=== PATIENT | male | born 1935 | race Caucasian/White ===

== ENCOUNTER → 2016-09-23 | Outpatient (CLI) | payer OTHER | LOC: RAD 09:37 | DX: J18.9 Pneumonia, unspecified organism (principal); R91.8 Other nonspecific abnormal finding of lung field ==

== ENCOUNTER 2016-10-01 12:19 | Inpatient (IN) | payer OTHER ==
[~2016-10-01] VITALS: Ht 190.5 cm; Wt 101.4 kg
--- NOTE | ~2016-10-01 | EKG ---
[address] [address] ELECTROCARDIOGRAM REPORT Name: LAYA EGAN Room #: 306-P ADM IN M.R.#: [id number] Admission: 10/01/16 Attend Phys: Dusty Ball MD Discharge: Date of : 31 Report #: [id number] THIS REPORT FOR: //name// [facility] Test Date: 2016-10-01 Test Time: 14:53:08 Pat Name: LAYA EGAN Department: Room: 306 P Gender: M Skin Lap Bonder: Sunday MAYEN : 1935 Requested By: Yamila Escalante Order Number: [id number] MD: Kyle Salcido Measurements Intervals [place] Rate: 71 P: AR: QRS: 59 QRSD: 109 T: 25 QT: 405 QTc: 441 Interpretive Statements Atrial fibrillation Low voltage, extremity leads No previous ECG available for comparison Electronically Signed On 10-04-2016 13:00:42 CDT by Kyle Salcido [email or web address] <ELECTRONICALLY SIGNED> By: Kyle Salcido MD 10/04/16 1300 1453 1453 Kyle Salcido MD /MARBIN
--- NOTE | ~2016-10-01 | HC ---
[place] [address] CONSULTATION Name: LAYA EGAN Room #: 306-P [facility] IN ..#: [id number] Admission: 10/01/16 Attend Phys: Dusty Ball MD Discharge: 10/07/16 Date of : 31 Report #: [id number] THIS REPORT FOR: //name// CC: Hesham Norton REQUESTING PHYSICIAN: Dr. Radford. CHIEF COMPLAINT: Atrial fibrillation. HISTORY OF PRESENT ILLNESS: The patient is an 80-year-old man who I follow for persistent atrial fibrillation who was admitted with a debilitation and pneumonia. He had been short of breath with activity. I am asked to see him because of bradycardic episodes in the low 50 and overall general complaints of fatigue and weakness as an outpatient. He denies syncope or presyncope. He is anticoagulated for his atrial fibrillation, which is for the most part, rate control without AV catie acting agents. He denies any neuro symptoms of slurred speech, extremity numbness, weakness or visual changes. He denies any GI or bleeding. He admits over the last several weeks he has been weak and tired and mostly sitting in a chair and taking long naps. PAST MEDICAL HISTORY: Significant for hypertension, atrial fibrillation, persistent acid peptic ulcer disease, possible rheumatoid arthritis, debilitation and interstitial lung disease is likely pulmonary diagnosis. CURRENT MEDICATIONS: Include levofloxacin, , fluoxetine, fluticasone, Protonix, , atorvastatin 40 mg daily, Xarelto 20 mg daily, albuterol p.r.n. SOCIAL HISTORY: Nonsmoker. REVIEW OF SYSTEMS: GASTROINTESTINAL: No abdominal pain, nausea, vomiting. CARDIOVASCULAR: No chest pain or pressure, no palpitations symptoms. NEUROLOGIC: No seizures, weakness. SKIN: No rashes. GASTROINTESTINAL: No hematemesis or melena. GENITOURINARY: No dysuria or hematuria. SKIN: No rashes. GENERAL: No fevers or chills. OBJECTIVE: VITAL SIGNS: ECG demonstrates atrial fibrillation on the 10/01/2016, which [address] [place] [address] CONSULTATION Name: LAYA EGAN Room #: 306-P [facility] IN .R.#: [id number] Admission: 10/01/16 Attend Phys: Dusty Ball MD Discharge: 10/07/16 Date of : 33 Report #: [id number] demonstrated a heart rate of 71. LABORATORY DATA: Hemoglobin is 9.7, white blood count 8, platelet count is 170,000. Chest x-ray, slight improvement in the right upper lobe infiltrate. IMPRESSION AND PLAN: 1. Atrial fibrillation, persistent. He has been followed as an outpatient for his atrial fibrillation, which had been previously rate controlled. We have had some discussions as he had some evidence on ECG only of sick sinus syndrome, but his symptoms of fatigue, the weakness, generalized may be related to bradycardia and we will have discussions as an outpatient for possible permanent pacemaker. 2. Pneumonia/pneumonitis. He is being treated aggressively for this and his symptoms could be related to this also. I would like to see how he resolves from this before making any decisions on whether or not he needs a pacemaker. 3. Anticoagulation. Presently, I would continue with Xarelto for stroke prevention. 4. Hyperlipidemia. I will continue with present medical therapy with a statin. <ELECTRONICALLY SIGNED> By: Dewayne Norton MD, FACC 10/09/16 1336 0934 1111 Dewayne Norton MD, FACC /nt
[2016-10-01 12:40] VITALS: BP 85/49
[2016-10-01] MEDS ORDERED: OMEPRAZOLE 20 M20 M1 PO (13:16)
[2016-10-01] MEDS ORDERED: XARELTO20 MG PO (13:16)
[2016-10-01] MEDS ORDERED: VYTORIN 10-401 EACH PO (13:17)
[2016-10-01] MEDS ORDERED: ZOLOFT50 MG PO (13:19)
[2016-10-01] MEDS ORDERED: PROZAC10 MG PO ×2 (13:23→13:24)
[2016-10-01 14:58] LABS: ABSOLUTE NEUTROPHILS 4.6 thou/uL (1.4-8.2); BASOPHILS 0.3 % (0.0-2.0); EOSINOPHILS 5.3 % (0.0-3.0); HEMATOCRIT 34.6 % (42.0-52.0); HEMOGLOBIN 11.7 gm/dL (14.0-18.0); LYMPHOCYTES 10.4 % (24.0-44.0); MCH 32.4 pg (26.0-34.0); MCHC 33.8 g/dL (28.0-37.0); MCV 95.8 fL (80.0-100.0); MONOCYTES 11.6 % (1.0-8.0); PLATELET COUNT 156 thou/uL (150-400); POLYS 72.4 % (36.0-66.0); RBC 3.61 mil/uL (4.50-6.00); RDW 14.3 % (10.5-14.5); WBC 6.3 thou/uL (4.0-11.0)
[2016-10-01 14:59] LABS: MANUAL DIFF NO
[2016-10-01 15:27] LABS: ALBUMIN 2.7 g/dL (3.4-5.0); ALKALINE PHOSPHATASE 68 U/L (46-116); ANION GAP 10 mmol/L (7-16); BUN 14 mg/dL (7-18); CALCIUM 8.9 mg/dL (8.5-10.1); CHLORIDE 102 mmol/L (98-107); CO2 26 mmol/L (21-32); CREATININE 1.3 mg/dL (0.6-1.3); GLUCOSE 84 mg/dL (70-99); NT-PRO BRAIN NAT PEPTIDE 2641 pg/mL (<300); POTASSIUM 4.1 mmol/L (3.5-5.1); SGOT 16 U/L (15-37); SGPT 14 U/L (30-65); SODIUM 138 mmol/L (136-145); TOTAL BILIRUBIN 0.7 mg/dL (<0.1-1.0); TROPONIN-I < 0.04 ng/mL (<0.04-0.07)
[2016-10-01 15:33] LABS: TSH 1.313 uIU/mL (0.358-3.740)
[2016-10-01 16:00] VITALS: BP 93/33
[2016-10-01] MEDS ORDERED: REQUIP 1 MG TABL1 M1 PO (16:44)
[2016-10-01 17:16] LABS: ABG SAMPLE TYPE ARTERIAL; BE(vivo) 1.2 mmol/L (-2 to +3); HCO3 24.1 mmol/L (22.0-26.0); LACTATE 1.08 mmol/L (0.5-2.0); O2(CT) 15.5 mL/dL (15.0-23.0); O2Hb 90.9 % (92.0-98.0); PCO2 32.7 mmHg (35.0-45.0); STICK SITE L.BRACHIAL; pH 7.486 (7.360-7.450); sO2 93.3 % (92.0-98.0); tCO2 25.1 mmol/L (24.0-30.0)
[2016-10-01 17:34] LABS: URINE BILIRUBIN NEGATIVE (Negative); URINE BLOOD NEGATIVE (Negative); URINE COLOR YELLOW; URINE GLUCOSE-RANDOM* NEGATIVE (Negative); URINE KETONES NEGATIVE (Negative); URINE LEUKOCYTES-REFLEX NEGATIVE (Negative); URINE PROTEIN (DIPSTICK) NEGATIVE (Negative); URINE SPECIFIC GRAVITY <= 1.005 (1.003-1.035); URINE UROBILINOGEN 0.2 E.U./dl (0.2-1.0)
[2016-10-01 19:37] VITALS: BP 95/47
[2016-10-02 00:16] VITALS: BP 105/48
[2016-10-02 05:57] LABS: HEMATOCRIT 33.1 % (42.0-52.0); MCH 31.8 pg (26.0-34.0); MCHC 33.2 g/dL (28.0-37.0); MCV 95.7 fL (80.0-100.0); RBC 3.46 mil/uL (4.50-6.00); RDW 13.8 % (10.5-14.5); WBC 4.2 thou/uL (4.0-11.0)
[2016-10-02 06:18] LABS: CALCIUM 8.6 mg/dL (8.5-10.1); POTASSIUM 4.3 mmol/L (3.5-5.1)
[2016-10-02] MEDS ORDERED: PROZAC20 MG PO (08:19)
[2016-10-02 08:36] VITALS: BP 121/62
[2016-10-02 12:40] VITALS: BP 94/41
[2016-10-02 13:12] LABS: IgA 201 mg/dL (61-437); IgG 1098 mg/dL (700-1600); IgM 235 mg/dL (15-143)
[2016-10-02 16:45] VITALS: BP 98/42
[2016-10-02 19:55] VITALS: BP 94/54
[2016-10-03 03:40] VITALS: BP 116/65
[2016-10-03 05:35] LABS: HEMATOCRIT 28.7 % (42.0-52.0); HEMOGLOBIN 9.7 gm/dL (14.0-18.0); MCH 32.1 pg (26.0-34.0); MCHC 33.8 g/dL (28.0-37.0); PLATELET COUNT 153 thou/uL (150-400); RBC 3.03 mil/uL (4.50-6.00); RDW 13.9 % (10.5-14.5); WBC 8.6 thou/uL (4.0-11.0)
[2016-10-03 05:41] LABS: MANUAL DIFF YES
[2016-10-03 05:56] LABS: CALCIUM 8.6 mg/dL (8.5-10.1); CREATININE 1.1 mg/dL (0.6-1.3); POTASSIUM 4.3 mmol/L (3.5-5.1)
[2016-10-03 08:03] VITALS: BP 116/87
[2016-10-03 08:06] LABS: ABSOLUTE NEUTROPHILS 7.6 thou/uL (1.4-8.2); TOTAL CELL COUNT 100
[2016-10-03 08:07] LABS: OVALOCYTES FEW; PLATELET ESTIMATE NORMAL; POLYCHROMASIA 1+
[2016-10-03 08:08] LABS: BURR CELLS OCCASIONAL; LARGE PLATELETS FEW
[2016-10-03 13:12] LABS: ANTI-DNA SCREEN <1 IU/mL (0-9); ANTI-RNP 0.2 AI (0.0-0.9)
[2016-10-03 14:08] LABS: FREE TESTOSTERONE 1.8 pg/mL (6.6-18.1)
[2016-10-03 19:43] VITALS: BP 101/49
[2016-10-04 03:43] VITALS: BP 123/64
[2016-10-04 04:17] LABS: CALCIUM 8.6 mg/dL (8.5-10.1); CREATININE 1.1 mg/dL (0.6-1.3); POTASSIUM 4.5 mmol/L (3.5-5.1)
[2016-10-04 04:33] LABS: HEMATOCRIT 28.1 % (42.0-52.0); HEMOGLOBIN 9.7 gm/dL (14.0-18.0); MCH 32.9 pg (26.0-34.0); MCHC 34.4 g/dL (28.0-37.0); MCV 95.7 fL (80.0-100.0); RBC 2.94 mil/uL (4.50-6.00); RDW 14.4 % (10.5-14.5)
[2016-10-04 08:35] VITALS: BP 108/59
[2016-10-04 10:08] LABS: GLOMERULR BASEM MEMBRN AB 3 units (0-20)
[2016-10-04 11:10] LABS: ANGIOTENSIN CONVERTNG ENZ 16 U/L (14-82)
[2016-10-04 13:09] LABS: MYELOPEROXIDASE ANTIBODY < 9.0 U/mL (0.0-9.0); PROTEASE 3 ANTIBODY < 3.5 U/mL (0.0-3.5)
[2016-10-04 18:15] VITALS: BP 117/74
[2016-10-04 19:52] VITALS: BP 124/56
[2016-10-05 03:50] VITALS: BP 119/66
[2016-10-05 07:25] VITALS: BP 124/68
[2016-10-05 17:15] VITALS: BP 112/56
[2016-10-05 19:50] VITALS: BP 128/73
[2016-10-06 04:10] VITALS: BP 121/69
[2016-10-06 09:37] VITALS: BP 100/63
[2016-10-06 12:22] VITALS: BP 135/57
[2016-10-06 16:43] VITALS: BP 134/59
[2016-10-06 19:40] VITALS: BP 126/65
[2016-10-07 04:27] VITALS: BP 130/73
[2016-10-07 08:35] VITALS: BP 107/52
[2016-10-07] MEDS ORDERED: COLACE 100 MG100 MG PO (08:40)
[2016-10-07] MEDS ORDERED: PREDNISONE 20 M20 M1 PO ×2 (08:40→08:46)
[2016-10-07] MEDS ORDERED: ATORVASTATIN CA80 MG PO (08:40)
[2016-10-07] MEDS ORDERED: LEVAQUIN 500 M500 M1 PO (08:46)
[2016-10-07 09:06] LABS: ASPERGILLUS FLAVUS Negative (Negative); ASPERGILLUS FUMIGATIS #1 Negative (Negative); ASPERGILLUS FUMIGATIS #2 Negative (NEGATIVE); ASPERGILLUS FUMIGATIS #3 Negative (NEGATIVE); ASPERGILLUS FUMIGATIS #6 Negative (NEGATIVE); AUREO PULLULANS Negative (Negative); MICROPOLYSPOR FAENI Negative (Negative); PIGEON SERUM Negative (Negative); SACCHAR. VIRIDIS Negative (Negative); THERM.CANDIDUS Negative (Negative); THERM.SACCHARI Negative (Negative); THERMOACTINOMYCE VULGARIS Negative (Negative)
[2016-10-07] MEDS ORDERED: MUCINEX TA600 MG/TA2 PO (09:41)
[2016-10-07] MEDS ORDERED: CLARITIN10 MG PO (09:42)
[2016-10-07] MEDS ORDERED: FLONASE 0.05%50 MCG NASAL (09:42)
[2016-10-07] MEDS ORDERED: NEBULIZER (09:46)
[2016-10-07] MEDS ORDERED: DUONEB 2.5-0.5 M3 ML INH (09:46)
[2016-10-07 10:24] LABS: HEMATOCRIT 34.7 % (42.0-52.0); HEMOGLOBIN 11.5 gm/dL (14.0-18.0); MCH 32.1 pg (26.0-34.0); MCHC 33.1 g/dL (28.0-37.0); MCV 96.8 fL (80.0-100.0); RBC 3.59 mil/uL (4.50-6.00); RDW 14.9 % (10.5-14.5); WBC 12.1 thou/uL (4.0-11.0)
[2016-10-07 10:39] LABS: ALBUMIN 2.7 g/dL (3.4-5.0); CALCIUM 8.6 mg/dL (8.5-10.1); CREATININE 1.1 mg/dL (0.7-1.3); POTASSIUM 3.7 mmol/L (3.5-5.1); TOTAL BILIRUBIN 0.7 mg/dL (<0.1-1.0); TOTAL PROTEIN 6.4 g/dL (6.4-8.2)
[2016-10-07 12:52] VITALS: BP 116/60
[2016-10-07 13:19] VITALS: BP 116/60
[2016-10-07 15:03] VITALS: BP 116/60
[2016-10-07 17:10] LABS: c-ANCA <1:20 titer (Neg:<1:20); p-ANCA <1:20 titer (Neg:<1:20)
== END 2016-10-07 15:49 | disposition home health service (06) | DRG 193 ==
LOC: 3N 12:19
PROVIDERS: Family Medicine; Internal Medicine Pulmonary Disease; Nurse Practitioner
PROC: 5A09557 Assistance with Respiratory Ventilation, Greater than 96 Consecutive Hours, Continuous Positive Airway Pressure (ICD-10-PCS; principal; 2016-10-02)
DX: J18.9 Pneumonia, unspecified organism (principal); E43 Unspecified severe protein-calorie malnutrition; J96.01 Acute respiratory failure with hypoxia; N17.9 Acute kidney failure, unspecified; I48.91 Unspecified atrial fibrillation; I10 Essential (primary) hypertension; E78.5 Hyperlipidemia, unspecified; F32.9 Major depressive disorder, single episode, unspecified; G47.30 Sleep apnea, unspecified; R26.81 Unsteadiness on feet; I95.9 Hypotension, unspecified; I49.5 Sick sinus syndrome; R53.81 Other malaise; Z68.27 Body mass index [BMI] 27.0-27.9, adult; Z85.46 Personal history of malignant neoplasm of prostate; Z87.11 Personal history of peptic ulcer disease; Z79.01 Long term (current) use of anticoagulants; Z87.891 Personal history of nicotine dependence
CPT/HCPCS: 10094; 10096

== ENCOUNTER → 2016-10-11 | Outpatient (CLI) | payer OTHER ==
[~2016-10-11] MED LIST: ATORVASTATIN CA80 MG PO; CLARITIN10 MG PO; COLACE 100 MG100 MG PO; DUONEB 2.5-0.5 M3 ML INH; FLONASE 0.05%50 MCG NASAL; LEVAQUIN 500 M500 M1 PO; MUCINEX TA600 MG/TA2 PO; NEBULIZER; OMEPRAZOLE 20 M20 M1 PO; PREDNISONE 20 M20 M1 PO; PROZAC10 MG PO; PROZAC20 MG PO; REQUIP 1 MG TABL1 M1 PO; VYTORIN 10-401 EACH PO; XARELTO20 MG PO; ZOLOFT50 MG PO
== END ==
LOC: CV 07:11
DX: I49.5 Sick sinus syndrome (principal); R42 Dizziness and giddiness

== ENCOUNTER → 2016-10-17 | Outpatient (CLI) | payer OTHER ==
[2016-10-17 11:43] LABS: HEMATOCRIT 38.9 % (42.0-52.0); HEMOGLOBIN 12.8 gm/dL (14.0-18.0); MCH 32.2 pg (26.0-34.0); MCHC 32.8 g/dL (28.0-37.0); MCV 98.1 fL (80.0-100.0); RBC 3.97 mil/uL (4.50-6.00); RDW 16.5 % (10.5-14.5); WBC 16.3 thou/uL (4.0-11.0)
== END ==
LOC: LAB 11:03
PROVIDERS: Internal Medicine Pulmonary Disease
DX: J44.9 Chronic obstructive pulmonary disease, unspecified (principal); R91.8 Other nonspecific abnormal finding of lung field; J90 Pleural effusion, not elsewhere classified

== ENCOUNTER → 2016-11-07 | Outpatient (CLI) | payer OTHER | LOC: RAD 10:35 | DX: J47.9 Bronchiectasis, uncomplicated (principal) ==

== ENCOUNTER → 2016-11-28 | Outpatient (CLI) | payer OTHER | LOC: SPEECH 10:50 → RAD 10:50 | DX: R13.12 Dysphagia, oropharyngeal phase (principal) ==

== ENCOUNTER 2016-12-03 08:00 | Inpatient (IN) | payer OTHER ==
[~2016-12-03] VITALS: Ht 190.5 cm; Wt 101.6 kg
--- NOTE | ~2016-12-03 | HC ---
[facility] [place] [address] CONSULTATION Name: LAYA EGAN Room #: 540-P ADM IN M.R.#: [id number] Admission: 12/03/16 Attend Phys: Franklin Tapia MD Discharge: Date of : 33 Report #: [id number] THIS REPORT FOR: //name// CC: Hesham Tapia REASON FOR CONSULTATION: I was asked to evaluate concerning exacerbation of COPD and chronic bronchitis. HISTORY OF PRESENT ILLNESS: The patient is an 81-year-old with long history of COPD and chronic bronchitis. In September, he was hospitalized with pneumonia. One of his sputum cultures revealed normal karthikeyan. The other one revealed mycobacterium avium complex. He was treated with corticosteroids and antibiotics and showed improvement. CT scan of the sinus noticed there is mild left maxillary disease and CT of the chest revealed multifocal subpleural prominent consolidation with ground glass opacities and septal thickening consistent with interstitial lung disease. There was also concern whether he had mycobacterial infection. He has a history of chronic bronchitis. He is HIV negative. Has a history of prostate and colon cancer without evidence of relapse. He has a [employer] reactor after being stationed in [place]. This is in 1961. He was evaluated by me as an outpatient on 11/05/2016. AFB cultures were done x 3, one of which is growing a mycobacterium. Also had sputum culture for bacteria, which revealed acinetobacter. Last week, he was placed on Bactrim. The acinetobacter was fully susceptible. It is noted that the sputum culture from my office was AFB positive, but probe negative for tuberculosis or mycobacterium avium complex. I am awaiting further identification. Forty eight hours ago developed increased cough, sputum production, shortness of breath, hypoxia and presented to the emergency room this morning. He has had yellowish sputum production. One episode of hemoptysis. He had a dental extraction about a week ago. He is taking anticoagulants. He has had no documented fever. Hemodynamically, he has been stable. He was able to walk in through the emergency room and is now on 2 liters of oxygen per nasal cannula. After some fluids, steroids, he has felt better in the last several hours. He has had difficulty expectorating any sputum today. PAST MEDICAL HISTORY: Legionella 1994, prostate cancer, nephritis, glaucoma, colon cancer, atrial fibrillation, obstructive sleep apnea, depression, colon resection. FAMILY HISTORY: Noncontributory. 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 Past alcohol use. [address] [address] CONSULTATION Name: LAYA EGAN Room #: 540-P [facility] IN M.R.#: [id number] Admission: 12/03/16 Attend Phys: Franklin Tapia MD Discharge: Date of : 33 Report #: [id number] ALLERGIES: None. MEDICATIONS: As noted on his MAR, Bactrim, presenting today, now on corticosteroids. REVIEW OF SYSTEMS: No nausea, vomiting, diarrhea, dysuria or frequency. No rash or arthritis symptoms. PHYSICAL EXAMINATION: VITAL SIGNS: He is afebrile, hemodynamically stable. GENERAL: He is alert and cooperative, sitting up in a chair. He was conversant. He is on 2 liters of oxygen per nasal cannula. SKIN: Unremarkable. LYMPH: Unremarkable. HEENT: Unremarkable except for an extracted posterior upper molar on the right. NECK: Supple. LUNGS: Decreased breath sounds bilaterally with no consolidation. HEART: Regular, without murmur. ABDOMEN: Soft, nontender, no hepatosplenomegaly or mass. EXTREMITIES: No peripheral edema. NEUROLOGIC: Nonfocal. LABORATORY STUDIES: Hemoglobin 12.5, white count 7.4, platelet count 173,000. Sedimentation rate 39, creatinine 1.3. ABG on 2 liters showed a pO2 of 102, pCO2 34, pH 7.45. Chest x-ray shows improved right upper lobe infiltrate from his last hospitalization with chronic changes in the bases. This past week, he had a video swallow, which was normal. IMPRESSION: An 81-year-old with underlying chronic obstructive pulmonary disease exacerbation of such with worsening chronic bronchitis. Has history of acinetobacter and mycobacterium avium complex. I am still awaiting on repeat studies to confirm whether this is colonization of his airways or true pathogen. Would recommend continuing broad antibiotic coverage, pending repeat sputum culture. We will continue pulmonary hygiene and corticosteroids. <ELECTRONICALLY SIGNED> By: Vel Zavala MD 12/04/16 1845 1829 0051 Vel Zavala MD /nt
--- NOTE | ~2016-12-03 | CNG ---
[facility] [place] [address] CYTO-NONGYN REPORT PROCEDURE Name: LAYA EGAN Room #: 540-P ADM IN M.R.#: [id number] Admission: 12/03/16 Date of : 33 Discharge: Report #: [id number] Path Case #: [id number] CYTOPATHOLOGY REPORT COLLECTION DATE: 12/04/2016 RECEIVED DATE: 12/04/2016 SUBMITTING PHYS: Dr. Hesham Pulido OTHER PHYS: Dr. Leo Tapia CLINICAL HISTORY: COPD Exacerbation SPECIMEN(S) RECEIVED: A.Sputum * * * * * * * * * * * * FINAL DIAGNOSIS: A. Sputum: - No evidence of malignancy - Few bronchial epithelial cells, alveolar macrophages, and squamous cells present. PATHOLOGIST: Candy Oshea M.D. REPORT ELECTRONICALLY SIGNED BY: Candy Oshea M.D. DATE/TIME: 12/05/2016 14:02 * * * * * * * * * * * * GROSS PATHOLOGY: A. Sputum: The specimen is submitted unfixed, labeled "Laya Egan". Received by the Cytology Department is five mL of cloudy white fluid. One ThinPrep slide was prepared. (mm 12.04.2016) DIE REPAIR(S): SHABBIR Bender(ASCP)IAC INITIAL CPT CODE(S): A; 78483 Professional services performed by [facility] at [facility] [address], [place] [address] Technical services performed by [facility] at [address] [place] [address]., [address], [place], [place] [address]. [facility] [address] [place] [address], [address] [facility] [address] [place] [address] CYTO-NONGYN REPORT PROCEDURE Name: LAYA EGAN Room #: 540-P ADM IN M.R.#: [id number] Admission: 12/03/16 Date of : 33 Discharge: Report #: [id number] Path Case #: [id number] [place] [id number] PHONE: [phone] DIRECTOR: Jordan Ambriz M.D. * * * END OF REPORT * * *
--- NOTE | ~2016-12-03 | EKG ---
[address] [address] ELECTROCARDIOGRAM REPORT Name: LAYA EGAN Room #: PRE M.R.#: [id number] Admission: Attend Phys: Discharge: Date of : 33 Report #: [id number] THIS REPORT FOR: //name// [facility] ED Test Date: 2016-12-03 Test Time: 08:32:14 Pat Name: LAYA EGAN Department: Room: Gender: M [employer]: [id number] : 1935 Requested By: Jayesh Patel Order Number: [id number] MD: Kaden Barajas Measurements Intervals [place] Rate: 94 P: MD: QRS: 54 QRSD: 100 T: 2 QT: 391 QTc: 490 Interpretive Statements Atrial fibrillation Borderline prolonged QT interval Compared to ECG 10/01/2016 14:53:08 No significant change was found Electronically Signed On 12-03-2016 9:03:34 CDT by Kaden Barajas [email or web address] <ELECTRONICALLY SIGNED> By: Kaden Barajas MD, [facility] 12/03/16 0903 0832 0832 Kaden Barajas MD, [facility] /EPI
--- NOTE | ~2016-12-03 | HC ---
[facility] [place] [address] CONSULTATION Name: ALYA EGAN Room #: 540-P ADM IN M.R.#: [id number] Admission: 12/03/16 Attend Phys: Franklin Tapia MD Discharge: Date of : 33 Report #: [id number] THIS REPORT FOR: //name// CC: Hesham Tapia DATE OF SERVICE: 12/03/2016 DATE OF SERVICE: 12/03/2016. REASON FOR CONSULTATION: Exacerbation of chronic obstructive pulmonary disease. IMPRESSION: 1. Pulmonary infiltrate. 2. 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 3. Debilitation. 4. Paroxysmal atrial fibrillation. PLAN: Agree with corticosteroids, antibiotics per ID. Continue BiPAP at night. Continue her home meds as able. HISTORY OF PRESENT ILLNESS: A very pleasant 81-year-old male relates that he was doing well until and then started to have shortness breath, cough, wheeze, and discolored sputum. He had been off his steroids for about 2 weeks when this occurred. He has been seeing Dr. Shola Zavala for MAC evaluation. He denies fever, chills or night sweats. He denies nausea or vomiting. Chest x-ray actually improving. Discussed with an ER physician and felt his exacerbation did not break in the ER and was thus admitted. HOME MEDICATIONS: Included albuterol, Astelin, calcium, Vytorin, , Flonase, DuoNeb, Prilosec, Xarelto, Requip, Zoloft and Spiriva. PAST MEDICAL HISTORY: History of colon CA with resection. FAMILY HISTORY: Positive for VT, COPD. SOCIAL HISTORY: Quit smoking in 1986. Negative significant ETOH. ALLERGIES: No known. REVIEW OF SYSTEMS: Cough, shortness of breath, atrial fibrillation, depression. PHYSICAL EXAMINATION: VITAL SIGNS: Temperature 97.9, pulse 96, respiratory rate 16, and BP 107/53. [facility] [address] [place] [address] CONSULTATION Name: LAYA EGAN Room #: 540-P [facility] IN M.R.#: [id number] Admission: 12/03/16 Attend Phys: Franklin Tapia MD Discharge: Date of : 33 Report #: [id number] EYES: Negative icterus. NECK: Trachea midline. LUNGS: Coarse wheeze bilateral. HEART: Irregular. ABDOMEN: Bowel sounds present. EXTREMITIES: No calf tenderness. Moves all extremities. LABORATORY AND DIAGNOSTIC DATA: White count 7.4, hemoglobin 12.5, platelets 173. BUN 13, creatinine 1.3. Troponin less than 0.04. Chest x-ray was similar to prior. ABG shows lactate 1.1, pH 7.455, pCO2 of 34, pO2 of 102 on 2 liters. We will follow closely with you. By: 1451 0118 Hesham Pulido MD /nt
[2016-12-03 08:03] VITALS: BP 121/68
[2016-12-03 08:30] LABS: HEMATOCRIT 38.3 % (42.0-52.0); HEMOGLOBIN 12.5 gm/dL (14.0-18.0); MCH 32.8 pg (26.0-34.0); MCHC 32.8 g/dL (28.0-37.0); RBC 3.82 mil/uL (4.50-6.00); RDW 17.5 % (10.5-14.5); WBC 7.4 thou/uL (4.0-11.0)
[2016-12-03 08:33] LABS: ANION GAP 9 mmol/L (7-16); BUN 13 mg/dL (7-18); CALCIUM 8.8 mg/dL (8.5-10.1); CHLORIDE 106 mmol/L (98-107); CO2 26 mmol/L (21-32); CREATININE 1.3 mg/dL (0.7-1.3); GLUCOSE 133 mg/dL (74-106); POTASSIUM 4.2 mmol/L (3.5-5.1); SODIUM 141 mmol/L (136-145)
[2016-12-03 08:41] LABS: TROPONIN-I < 0.04 ng/mL (<0.04-0.07)
[2016-12-03] MEDS ORDERED: ZOLOFT50 MG PO (09:30)
[2016-12-03] MEDS ORDERED: BACTRIM DS TAB1 EACH PO (09:41)
[2016-12-03] MEDS ORDERED: PROAIR HFA8.5 GM PO (09:42)
[2016-12-03 11:04] LABS: ABG SAMPLE TYPE ARTERIAL; BE(vivo) 0.2 mmol/L (-2 to +3); HCO3 23.6 mmol/L (22.0-26.0); O2(CT) 17.3 mL/dL (15.0-23.0); O2Hb 96.8 % (92.0-98.0); PCO2 34.4 mmHg (35.0-45.0); PO2 102.5 mmHg (80.0-100.0); STICK SITE R.RADIAL; pH 7.455 (7.360-7.450); tCO2 24.7 mmol/L (24.0-30.0)
[2016-12-03 11:55] VITALS: BP 128/56
[2016-12-03 12:35] VITALS: BP 107/53
[2016-12-03 15:45] VITALS: BP 105/62
[2016-12-03 20:15] VITALS: BP 99/50
[2016-12-03 23:20] VITALS: BP 101/60
[2016-12-04 04:00] VITALS: BP 106/60
[2016-12-04 05:01] LABS: HEMOGLOBIN 11.6 gm/dL (14.0-18.0); WBC 5.1 thou/uL (4.0-11.0)
[2016-12-04 05:03] LABS: HEMATOCRIT 34.5 % (42.0-52.0); MCH 33.2 pg (26.0-34.0); MCHC 33.7 g/dL (28.0-37.0); MCV 98.5 fL (80.0-100.0); PLATELET COUNT 154 thou/uL (150-400); RDW 17.3 % (10.5-14.5)
[2016-12-04 05:16] LABS: MANUAL DIFF YES
[2016-12-04 05:18] LABS: CALCIUM 8.8 mg/dL (8.5-10.1); CREATININE 1.2 mg/dL (0.7-1.3); POTASSIUM 4.6 mmol/L (3.5-5.1)
[2016-12-04 05:23] LABS: ALBUMIN 3.1 g/dL (3.4-5.0); MAGNESIUM 2.2 mg/dL (1.8-2.4); TOTAL BILIRUBIN 0.5 mg/dL (<0.1-1.0); TOTAL PROTEIN 6.5 g/dL (6.4-8.2)
[2016-12-04 05:53] LABS: ABSOLUTE NEUTROPHILS 4.5 thou/uL (1.4-8.2); TOTAL CELL COUNT 100
[2016-12-04 05:54] LABS: ANISOCYTOSIS 2+; MACROCYTES SLIGHT; POLYCHROMASIA OCCASIONAL
[2016-12-04 08:00] VITALS: BP 100/46
[2016-12-04 16:00] VITALS: BP 109/50; BP 149/95
[2016-12-04 20:39] VITALS: BP 103/46
[2016-12-05 05:34] VITALS: BP 115/53
[2016-12-05 08:29] VITALS: BP 108/68
[2016-12-05 15:59] VITALS: BP 109/61
[2016-12-05 19:21] VITALS: BP 103/58
[2016-12-06 03:28] VITALS: BP 117/65
[2016-12-06 07:54] VITALS: BP 128/69
[2016-12-06] MEDS ORDERED: PREDNISONE 10 M10 MG PO (12:14)
[2016-12-06 12:29] VITALS: BP 128/69
== END 2016-12-06 13:45 | disposition home or self-care (01) | DRG 191 ==
LOC: ER 08:00 → EROBS 11:30 → 5S 11:30
PROVIDERS: Emergency Medicine; Nurse Practitioner
DX: J44.0 Chronic obstructive pulmonary disease with (acute) lower respiratory infection (principal); A31.0 Pulmonary mycobacterial infection; R65.10 Systemic inflammatory response syndrome (SIRS) of non-infectious origin without acute organ dysfunction; J44.1 Chronic obstructive pulmonary disease with (acute) exacerbation; F32.9 Major depressive disorder, single episode, unspecified; J20.9 Acute bronchitis, unspecified; H40.9 Unspecified glaucoma; G47.33 Obstructive sleep apnea (adult) (pediatric); R26.81 Unsteadiness on feet; I48.0 Paroxysmal atrial fibrillation; Z82.49 Family history of ischemic heart disease and other diseases of the circulatory system; Z85.46 Personal history of malignant neoplasm of prostate; Z87.01 Personal history of pneumonia (recurrent); Z85.038 Personal history of other malignant neoplasm of large intestine; Z79.899 Other long term (current) drug therapy; Z87.891 Personal history of nicotine dependence; Z82.5 Family history of asthma and other chronic lower respiratory diseases
CPT/HCPCS: 10086

== ENCOUNTER → 2016-12-20 | Outpatient (CLI) | payer OTHER ==
[~2016-12-20] MED LIST changes: +BACTRIM DS TAB1 EACH PO; +PREDNISONE 10 M10 MG PO; +PROAIR HFA8.5 GM PO
== END ==
LOC: RAD 08:14
DX: J44.9 Chronic obstructive pulmonary disease, unspecified (principal)

== ENCOUNTER → 2017-07-15 | Outpatient (CLI) | payer OTHER ==
[~2017-07-15] MED LIST changes: +ESCITALOPRAM OX20 MG PO; +FLORINEF ACETA0.1 MG PO; +IPRATROPIUM BRO15 ML NASAL; +MIDODRINE HCL 55 M1 PO; +MIDODRINE HCL10 MG PO; +OSELB75 PO; +PREDNISONE 10 M10 M1 PO; +PREDNISONE 5 MG5 M1 PO; +REQUIP XL2 MG PO; +ROPINIROLE HCL2 M1 PO; +ZANAFLEX4 MG PO
== END ==
LOC: RAD 16:38
DX: J90 Pleural effusion, not elsewhere classified (principal); J18.8 Other pneumonia, unspecified organism

== ENCOUNTER → 2017-08-05 | Outpatient (CLI) | payer OTHER | LOC: CAT 07-25 15:47 | DX: J44.9 Chronic obstructive pulmonary disease, unspecified (principal); R91.1 Solitary pulmonary nodule; J84.10 Pulmonary fibrosis, unspecified; R59.0 Localized enlarged lymph nodes; J96.01 Acute respiratory failure with hypoxia; N17.9 Acute kidney failure, unspecified; I48.91 Unspecified atrial fibrillation; I10 Essential (primary) hypertension; E78.5 Hyperlipidemia, unspecified; G47.30 Sleep apnea, unspecified; I95.9 Hypotension, unspecified; I49.5 Sick sinus syndrome; Z85.46 Personal history of malignant neoplasm of prostate; Z87.891 Personal history of nicotine dependence ==

== ENCOUNTER → 2017-10-30 | Outpatient (CLI) | payer OTHER ==
[~2017-10-30] MED LIST changes: -ESCITALOPRAM OX20 MG PO; -FLORINEF ACETA0.1 MG PO; -IPRATROPIUM BRO15 ML NASAL; -MIDODRINE HCL 55 M1 PO; -MIDODRINE HCL10 MG PO; -OSELB75 PO; -PREDNISONE 10 M10 M1 PO; -PREDNISONE 5 MG5 M1 PO; -REQUIP XL2 MG PO; -ROPINIROLE HCL2 M1 PO; -ZANAFLEX4 MG PO
== END ==
LOC: NUC 08:17
DX: R07.9 Chest pain, unspecified (principal); E78.5 Hyperlipidemia, unspecified; I10 Essential (primary) hypertension; I48.91 Unspecified atrial fibrillation; Z87.891 Personal history of nicotine dependence

== ENCOUNTER → 2017-11-05 | Outpatient (CLI) | payer OTHER ==
[~2017-11-05] VITALS: Ht 190.5 cm; Wt 113.4 kg
[~2017-11-05] MED LIST changes: +MIDODRINE HCL 55 M1 PO; +PREDNISONE 5 MG5 M1 PO; +REQUIP XL2 MG PO
--- NOTE | ~2017-11-05 | CATHLAB ---
[facility] [address] [place] [address] INVASIVE PROCEDURE REPORT Name: JULISALAYA WILFRED Room #: REG Armaan#: [id number] Admission: 11/05/17 Attend Phys: Ramana Ballard MD Discharge: Date of : 33 Date of Service: 11/05/17 1240 Report #: [id number] THIS REPORT FOR: //name// APPROVED REPORT Study performed: 11/05/2017 08:45:44 Patient Details Patient Status: Out-Patient Room #: The patient is a 81 year-old male Event Personnel Ramana Ballard Doula, Wilber White RN, Molly Randhawa RTR, KHANH Vázquez, Laya Webb Monitor Procedures Performed Left Heart Cath w/or w/o Coronaries [id number] [facility] Indication Dyspnea, Positive stress test, Chest pain Risk Factors HypercholesterolemiaPhysical Activity, Hypertension Procedure Narrative The Right Wrist^ was infiltrated with 1% Lidocaine subcutaneous anesthesia. A TRANSRADIAL SLENDER 6F GLIDESHEATH KIT #[id number] sheath was inserted into the Right Radial Artery^. Coronary angiography was performed using coronary diagnostic catheters. The right coronary system was accessed and visualized with a 5FR JR 4 #[id number] catheter. The left coronary system was accessed and visualized with a 5FR JL 3.5 #515708 catheter. The left ventricle was accessed and visualized with a 5FR PIG 145 ANGLED #[id number] catheter. Left ventricular/Aortic Valve gradient assessed via catheter pullback. Left ventriculogram was performed in 30 degree projection. Closure device was deployed with a Fr VASC BAND R 24CM #[id number]. The patient tolerated the procedure well and there were no complications associated with the procedure. There was no hematoma. Intraoperative Conscious Sedation Sedation start time: 9.33 Case end Time: 9.50 Fentanyl 25 mcg Versed 1.7 mg Fluoro Time: 727.00 minutes [facility] [place] [place] [address] INVASIVE PROCEDURE REPORT Name: LAYA EGNA Room #: REG [facility].#: [id number] Admission: 11/05/17 Attend Phys: Ramana Ballard MD Discharge: Date of : 33 Date of Service: 11/05/17 1240 Report #: [id number] Dose: DAP 6810.5 cGycm2 727 mGy Contrast Type and Amount: Visipaque 95 ml Coronary Angiography The patient's coronary anatomy is right dominant. Diagnostic Cath Left Main Patent vessel, with no flow-limiting lesions. LAD The proximal segment is calcified with mild diffuse disease, 30%. The remaining segments are patent. Diagonal 1 Small-caliber vessel, with no flow-limiting lesions. Diagonal 2 Small-caliber vessel, with no flow-limiting lesions. Circumflex Supplies one moderate size OM vessel. No flow-limiting lesions. OM1 Divides into 2 branches, patent with no flow-limiting lesions. Right Coronary Dominant vessel with mild disease in the proximal segment, 20%. R PDA Patent vessel, with no flow-limiting lesions. RPLV Patent vessels, with no flow-limiting lesions. Left Ventriculography The left ventricle is mildly dilated in size with normal contractility. The left ventricular ejection fraction is estimated to be 50%. Hemodynamics The aortic pressure is 101/56 mmHg with a mean of 75 mmHg. The left ventricular pressure is 100/13 mmHg with a mean of mmHg. The left ventricular end diastolic pressure is 17 mmHg. There was no gradient across the aortic valve upon pullback. Pullback from the left ventricle to the aorta revealed no gradient across the aortic valve. Conclusion 1. Mild, nonobstructive CAD. 2. Right dominant system. 3. Low normal LV systolic function. 4. Recommend medical therapy. <ELECTRONICALLY SIGNED> By: Ramana Ballard MD 11/05/17 1240 1240 1240 Ramana Ballard MD /INF
--- NOTE | ~2017-11-05 | EKG ---
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 11/05/17 0855 0829 0829 Kaden Barajas MD, FACC /EPI
[2017-11-05 08:34] VITALS: BP 108/58
[2017-11-05 08:54] LABS: HEMATOCRIT 35.8 % (42.0-52.0); HEMOGLOBIN 12.1 gm/dL (14.0-18.0); MCH 34.1 pg (26.0-34.0); MCHC 33.7 g/dL (28.0-37.0); MCV 101.1 fL (80.0-100.0); RBC 3.54 mil/uL (4.50-6.00); RDW 14.5 % (10.5-14.5); WBC 6.6 thou/uL (4.0-11.0)
[2017-11-05 09:11] LABS: CREATININE 1.3 mg/dL (0.7-1.3)
== END ==
LOC: CATH 08:09
PROVIDERS: Internal Medicine Cardiovascular Disease
DX: I25.10 Atherosclerotic heart disease of native coronary artery without angina pectoris (principal); E78.00 Pure hypercholesterolemia, unspecified; I10 Essential (primary) hypertension; I48.91 Unspecified atrial fibrillation; G47.30 Sleep apnea, unspecified; D64.9 Anemia, unspecified; Z90.49 Acquired absence of other specified parts of digestive tract; Z85.038 Personal history of other malignant neoplasm of large intestine; F32.9 Major depressive disorder, single episode, unspecified; Z85.46 Personal history of malignant neoplasm of prostate; J44.9 Chronic obstructive pulmonary disease, unspecified; K21.9 Gastro-esophageal reflux disease without esophagitis; Z87.891 Personal history of nicotine dependence

== ENCOUNTER → 2017-12-05 | Outpatient (CLI) | payer OTHER | LOC: CAT 06:42 | DX: R91.1 Solitary pulmonary nodule (principal); J98.4 Other disorders of lung; I31.3 Pericardial effusion (noninflammatory); I25.10 Atherosclerotic heart disease of native coronary artery without angina pectoris; E03.4 Atrophy of thyroid (acquired); K82.8 Other specified diseases of gallbladder ==

== ENCOUNTER 2018-01-09 13:48 | Inpatient (IN) | payer OTHER ==
[~2018-01-09] VITALS: Ht 190.5 cm; Wt 114.3 kg
--- NOTE | ~2018-01-09 | P ---
[facility] [address] [place] [address] PROCEDURE REPORT Name: LAYA EGAN Room #: 421-P [facility] IN M.R.#: [id number] Admission: 01/09/18 Attend Phys: Eric Christine MD Discharge: Date of : 33 Report #: [id number] THIS REPORT FOR: //name// CC: Tuan Christine DATE OF SERVICE: 01/12/2018 PROCEDURE: Fiberoptic bronchoscopy with protected specimen brush of the right upper lobe and bronchial lavage in the lingula on the left. INDICATION: Pulmonary infiltrates. The patient is chronically immunosuppressed through systemic steroids, possible hemoptysis. ASA CLASSIFICATION: Class 3. PROCEDURE NOTATION: After discussing risks and benefits of planned procedure with the patient, he desired to proceed. After obtaining informed consent, he was brought to rn cardiac cath 3 where he was placed on continuous cardiopulmonary monitoring and supplemental oxygen. He already received 2% lidocaine nebulized to anesthetize the upper respiratory tract. Once accomplished, he received conscious sedation. A total 4 mg of Versed and 25 mcg of fentanyl were titrated during the procedure to provide adequate sedation. Once accomplished, bronchoscope was passed through an oral biteblock until vocal cords were visualized. Vocal cords had some thick white secretions noted on them. A 2% lidocaine was instilled in the vocal cords to provide topical anesthesia. They moved appropriately both before and after procedure. Bronchoscope was then passed in the trachea, 2% lidocaine was instilled in the tracheobronchial tree bilaterally to provide topical anesthesia. Once complete, airways were surveyed. FINDINGS: Mainstem, lobar, segmental and subsegmental bronchi were all explored and were patent with no significant anatomic variation. There were diffuse thick white secretions noted throughout, predominantly in the upper lobes. Protected specimen brush was sent in 1 mL of saline for quantitative cultures from the right upper lobe. Because more purulent secretions appeared to be emanating from the left later during the procedure, the lingula was selected for lavage. The patient tolerated well. No noted complications. After specimens were collected, the rest of mucous plugging that were visible were purged and aspirated. IMPRESSION: Pulmonary infiltrates as described above. [facility] [address] [place] [address] PROCEDURE REPORT Name: LAYA EGAN Room #: 421-P ADM IN M.R.#: [id number] Admission: 01/09/18 Attend Phys: Eric Christine MD Discharge: Date of : 33 Report #: [id number] PLAN: Await microbiologic and cytologic tests. By: 0926 1257 Marvin Sloan MD /nt
--- NOTE | ~2018-01-09 | EKG ---
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: Director Of [employer]: jlambertz : 1935 Requested By: Isabella Covington Order Number: [id number] MD: Kaden Barajas Measurements Intervals [place] Rate: 81 P: DC: QRS: 37 QRSD: 87 T: 24 QT: 395 QTc: 459 Interpretive Statements Atrial fibrillation Borderline low voltage, extremity leads Compared to ECG 11/05/2017 08:29:58 No significant changes Electronically Signed On 01-11-2018 13:56:48 CDT by Kaden Barajas [email or web address] <ELECTRONICALLY SIGNED> By: Kaden Barajas MD, [facility] 01/11/18 1356 1454 145 Kaden Barajas MD, FACC /EPI
--- NOTE | ~2018-01-09 | HC ---
[facility] [place] [address] CONSULTATION Name: LAYA EGAN Room #: 220-P [facility] IN M.R.#: [id number] Admission: 01/09/18 Attend Phys: Eric Christine MD Discharge: 01/17/18 Date of : 33 Report #: [id number] THIS REPORT FOR: //name// CC: Tuan Christine HISTORY OF PRESENT ILLNESS: The patient is an 82-year-old male. He is currently being followed Cardiology aguero by Dr. Ramana Ballard, my partner. It looks like Dr. Ballard performed coronary angiography, cardiac catheterization in November of this year. There was mild 3-vessel disease, no occlusive disease. He has longstanding COPD and bronchiectasis. Although he did quit smoking 25 years ago but having significant recurrent issues with his lungs and shortness of breath over the last year, followed by Dr. Pulido of Pulmonary. No recurrent chest pain or pressure and again, no intervention was indicated. He became progressively more short of breath for the last couple of days and now admitted with O2 support. He has significant dyspnea, shortness of breath with minimal activity. This is exacerbated, but has not been real active in the last year at all, he states. He had some borderline hypotension upon his admission. MEDICATIONS: He has been maintained on Vytorin, linezolid, Advair, Claritin, melatonin, omeprazole, potassium, prednisone, Xarelto 20 for permanent atrial fibrillation, Requip and Zoloft. PAST MEDICAL HISTORY: Positive for mild coronary artery disease from a recent catheterization, permanent underlying atrial fibrillation with underlying sick sinus syndrome, not requiring any AV node blocking agents, chronic bronchiectasis, COPD, O2 dependent, reflux, history of diastolic heart failure, hyperlipidemia, orthostatic hypotension, sleep apnea. Also, a colectomy in 1999. SOCIAL HISTORY: Lives with his . He is a former tobacco user. He quit 25 years ago. No alcohol use. FAMILY HISTORY: Negative for premature coronary artery disease. EKG is atrial fib with nonspecific changes. LABORATORY DATA: Sodium 136, potassium 4.4, creatinine 1.2. Troponin is negative. BNP is 3245. Lactate is 1.1. H and H are 10.6 and 31.6, white count is 11.6. PHYSICAL EXAMINATION: VITAL SIGNS: Blood pressure 104/48, pulse is 80s and irregular. HEENT: Eyes reveal xanthelasmas. There is some mild arcus. Pharynx slightly dry mucous membranes. NECK: Shows no definite JVD. LUNGS: There are some fine crackles bilaterally. There are some wheezes and [facility] [address] [place] [address] CONSULTATION Name: LAYA EGAN Room #: 220-P [facility] IN M.R.#: [id number] Admission: 01/09/18 Attend Phys: Eric Christine MD Discharge: 01/17/18 Date of : 33 Report #: [id number] more coarse sounds on the left compared to the right. CARDIOVASCULAR: Irregularly irregular S1, S2. ABDOMEN: Soft, slightly protuberant. EXTREMITIES: Reveal trace of edema. Distal pulses are diminished. NEUROLOGIC: Nonfocal. SKIN: Warm and dry without xanthoma or ulcer. There are some venous stasis changes. ASSESSMENT: 1. Acute on chronic respiratory failure with underlying bronchiectasis. 2. Chronic obstructive pulmonary disease. 3. May be a component of diastolic heart failure, degenerative joint disease, generalized debilitation, history of orthostatic hypotension, permanent atrial fibrillation, on chronic anticoagulation. 4. Hypercholesterolemia. RECOMMENDATIONS AND PLAN: We will continue his current regimen. We will continue a dose of IV Lasix. We will check an echo, O2 support, continue rate control and anticoagulation, a Pulmonary consult. <ELECTRONICALLY SIGNED> By: Maurizio Mcwilliams MD, FACC 01/19/18 0942 0928 57 Maurizio Mcwilliams MD, FACC /nt
--- NOTE | ~2018-01-09 | HC ---
[facility] [place] [address] CONSULTATION Name: LAYA EGAN Room #: 421-P ADM IN M.R.#: [id number] Admission: 01/09/18 Attend Phys: Eric Christine MD Discharge: Date of : 33 Report #: [id number] THIS REPORT FOR: //name// CC: Tuan Christine DATE OF SERVICE: 01/10/2018 INFECTIOUS DISEASE CONSULTATION ATTENDING PHYSICIAN: Dr. Christine. REASON FOR CONSULTATION: Increasing shortness of breath, worsening pulmonary infiltrates, history of MAC. HISTORY OF PRESENT ILLNESS: An 82-year-old white man with chronic obstructive pulmonary disease, O2 dependent 3 liters per minute and prednisone dependent 5 mg daily, relates that he is having increasing shortness of breath for about one week. On the date of admission, he had severe shaking chills. No actual fevers, but he relates he has profuse sweats, particularly when he sleeps at night. He was found to have MAC and sputum culture previously, but it was elected not to proceed with treatment. PAST MEDICAL HISTORY: Obstructive sleep apnea, requiring BiPAP. Atrial fibrillation -- chronic coronary artery disease. Colon resection for carcinoma. Prostate cancer. History of malaria while in [place]. Episode of Legionella pneumonia. Previous episode of nephritis. DRUG ALLERGIES: None listed. MEDICATIONS: He is on vancomycin 1 g IV every 8 hours, rivaroxaban 20 mg daily, meropenem 500 mg IV every 8 hours, methylprednisolone 40 mg IV q.i.d., Atrovent and albuterol inhalation treatments every 4 hours, midodrine 5 mg b.i.d., ropinirole 2 mg at bedtime, Lasix 40 mg IV x 1. SOCIAL HISTORY: See H and P. FAMILY HISTORY: See H and P. REVIEW OF SYSTEMS: As above. PHYSICAL EXAMINATION: GENERAL: appearing man. VITAL SIGNS: Temperature 100.1, pulse 78, respirations 20, BP 96/64, height 6 feet 3 inches, weight 252 pounds, O2 saturation 95% on 3 liters oxygen nasal cannula. [facility] [address] [place] [address] CONSULTATION Name: LAYA EGAN Room #: 421-P [facility] IN M.R.#: [id number] Admission: 01/09/18 Attend Phys: Eric Christine MD Discharge: Date of : 33 Report #: [id number] HEENMT: Within range. NECK: Supple, no thyromegaly. LUNGS: Faint basilar crackles, left lung posteriorly. HEART: S1, S2. No gallop or murmur. ABDOMEN: Soft, no masses or megaly. GENITALIA AND RECTAL: Deferred. EXTREMITIES: No clubbing, cyanosis. NEUROLOGIC: Grossly within normal limits. LABORATORY DATA: Sodium is 136, potassium 4.4, CO2 of 27, BUN 15, creatinine 1.2, glucose 120. Lactic acid on admission 2.1. Troponin normal. NT-proBNP 3245. WBC 11,600, hemoglobin 10.6 g/dL, platelets 225,000. White blood cell count differential revealed 88% segmented neutrophils. Sed rate 109 mm per hour. Rheumatoid factor was positive in 09/2016. The repeat rheumatoid factor is pending. Multiple serologic studies that included anti-double stranded DNA, Giles antibody, M[employer]ER were normal. TSH normal. MRSA by PCR pending. ANCA negative. Hypersensitivity pneumonitis serology was negative. A urinalysis today is normal. The ABGs revealed pH 7.50, pCO2 of 32, pO2 of 74, bicarbonate 25. These set of gases is on 3 liters oxygen nasal cannula. 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 RADIOLOGY EVALUATION: A chest x-ray revealed cardiomegaly and bilateral perihilar infiltrate, left basilar infiltrate with small effusion. A CT scan of the chest, high resolution revealed mediastinal lymphadenopathy, small left pleural effusion, worsening of the interstitial pulmonary infiltrates with increasing ground glass opacity, increasing interstitial thickening , numerous small subcentimeter pulmonary nodules, noncalcified; small pericardial effusion. ASSESSMENT: 1. Severe chronic obstructive pulmonary disease, oxygen supplementation needed as well as prednisone needed. 2. Increasing interstitial pulmonary infiltrates. 3. 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 4. Hypotension. 5. Obstructive sleep apnea, on continuous positive airway pressure. 6. Moderate anemia. 7. History of positive rheumatoid factor and significant elevation of ESR. SUGGESTIONS: Recommend proceed with repeat bronchoscopy. Possibly may need to consider a therapeutic trial with clarithromycin, ethambutol, and rifampin or rifabutin should there be an interaction with oral anticoagulants the patient is on. For the time being, let us continue his treatment with vancomycin and meropenem. [address] [address] CONSULTATION Name: LAYA EGAN WILFRED Room #: 421-P ADM IN M.R.#: [id number] Admission: 01/09/18 Attend Phys: Eric Christine MD Discharge: Date of : 33 Report #: [id number] Marvin Sloan, thank you for requesting my suggestion. <ELECTRONICALLY SIGNED> By: Ron Salcido MD 01/11/18 0805 1511 [id number] Ron Salcido MD /nt
--- NOTE | ~2018-01-09 | 2DMMODE ---
[facility] [address] [place] [address] 2 D/M-MODE ECHOCARDIOGRAM Name: LAYA EGAN WILFRED Room #: 220-P ADM IN M.R.#: [id number] Admission: 01/09/18 Attend Phys: Eric Christine MD Discharge: Date of : 31 Date of Service: 01/11/18 0921 Report #: [id number] THIS REPORT FOR: //name// APPROVED REPORT Study performed: 01/10/2018 10:38:16 EXAM: Comprehensive 2D, Doppler, and color-flow Echocardiogram Patient Location: Bedside Room #: 421 Status: on-call BSA: 2.42 HR: 76 bpm BP: 99/54 mmHg Other Information Study Quality: Adequate Indications Atrial Fibrillation Dyspnea 2D Dimensions RVDd: 41.55 mm LVEF(%): 59.90 (>50%) IVSd: 11.06 (7-11mm) LVOT Diam: 22.65 (18-24mm) LVDd: 54.15 mm PWd: 10.53 (7-11mm) Ascending Ao: 31.87 (22-36mm) LVDs: 36.71 (25-40mm) Aortic Root: 35.22 mm Rodriguez's LVEF: 59.90 % Volumes Left Atrial Volume (Systole) Single Plane 4CH: 77.16 mL Single Plane 2CH: 80.01 mL LA ESV Index: 40.00 mL/m2 Aortic Valve AoV Peak Gabe.: 1.34 m/s AO Peak Gr.: 7.14 mmHg LVOT Max P.00 mmHg LVOT Max V: 1.00 m/s ONEYDA Vmax: 3.01 cm2 Pulmonary Valve PV Peak Gabe.: 0.77 m/s PV Peak Gr.: 2.41 mmHg [facility] [address] [place] [address] 2 D/M-MODE ECHOCARDIOGRAM Name: JULISALAYA HARDIN Room #: 220-P [facility] IN ..#: [id number] Admission: 01/09/18 Attend Phys: Eric Christine MD Discharge: Date of : 33 Date of Service: 01/11/18 0921 Report #: [id number] Tricuspid Valve TR Peak Gabe.: 2.68 m/s TR Peak Gr.: 28.83 mmHg PA Pressure: 39.00 mmHg Left Ventricle The left ventricle is normal size. There is normal LV segmental wall motion. There is normal left ventricular wall thickness. The left ventricular systolic function is normal. The left ventricular ejection fraction is within the normal range. LVEF is 50-55%. This study is not technically sufficient to allow evaluation of the LV diastolic function due to atrial fibrillation. Right Ventricle Right ventricle is at the upper limits of normal. The right ventricular systolic function is normal. Atria Left atrium is dilated. Right atrium is dilated. Aortic Valve The aortic valve is normal in structure. No aortic regurgitation is present. There is no aortic valvular stenosis. Mitral Valve The mitral valve is normal in structure. Mild mitral regurgitation. No evidence of mitral valve stenosis. Tricuspid Valve The tricuspid valve is normal in structure. Trace to mild tricuspid regurgitation. There is trace to mild tricuspid regurgitation. Estimated PAP 39 mmHg. There is mild pulmonary hypertension. Pulmonic Valve The pulmonary valve is normal in structure. Trace pulmonic regurgitation. Great Vessels The aortic root is normal in size. IVC is dilated and collapses >50% with inspiration. Pericardium Trace pericardial effusion. <Conclusion> [facility] [address] [place] [address] 2 D/M-MODE ECHOCARDIOGRAM Name: LAYA EGAN Room #: 220-P ADM IN M.R.#: [id number] Admission: 01/09/18 Attend Phys: Eric Christine MD Discharge: Date of : 33 Date of Service: 01/11/18 0921 Report #: [id number] The left ventricle is normal size. LVEF is 50-55%. This study is not technically sufficient to allow evaluation of the LV diastolic function due to atrial fibrillation. Right ventricle is at the upper limits of normal. Left atrium is dilated. Right atrium is dilated. The aortic valve is normal in structure. Mild mitral regurgitation. Trace to mild tricuspid regurgitation. There is trace to mild tricuspid regurgitation. Estimated PAP 39 mmHg. There is mild pulmonary hypertension. The aortic root is normal in size. Trace pericardial effusion. <ELECTRONICALLY SIGNED> By: Maurizio Mcwilliams MD, FACC 01/11/18920 0 0 Maurizio Mcwilliams MD, FACC /INF
--- NOTE | ~2018-01-09 | PATH ---
[facility] [address] [address] PATHOLOGY RPT PROCEDURE Name: LAYA EGAN Room #: 421-P ADM IN M.R.#: [id number] Admission: 01/09/18 Date of : 33 Discharge: Report #: [id number] Path Case #: [id number] Note [facility] Accession Number: [id number] TESTS RESULT FLAG UNITS REF RANGE LAB Clinician Provided Cytology Information No. of containers..01 Other (Miscellaneous) Source: BAL LEFT DIAGNOSIS: BAL LEFT NEGATIVE FOR MALIGNANT CELLS. NORMAL BRONCHIAL CELLS AND MACROPHAGES ARE PRESENT. Signed out by: 02 Go Spence MD, Pathologist NPI- [id number] Performed by: 03 Vesna Esquivel, Nurse Private Duty ([facility]) Gross description: 01 10ML, PINK, CLEAR /LCS FLAG LEGEND: L-Low Normal,H-High Normal,LL-Alert Low,HH-Alert High <-Panic Low,>-Panic High,A-Abnormal,AA-Critical Abnormal Performed at: [address] [place] [address] Armando Best MD, [address] [address] Winnie West MD, [address] [address] Jordan Ambriz MD, Performed at: [address], [place], [place] [id number] MD Armando Best MD Phone: [phone]
[2018-01-09 13:50] VITALS: BP 95/53
[2018-01-09 14:51] LABS: ABSOLUTE NEUTROPHILS 10.2 thou/uL (1.4-8.2); BASOPHILS 0.5 % (0.0-2.0); EOSINOPHILS 0.8 % (0.0-3.0); HEMATOCRIT 31.1 % (42.0-52.0); HEMOGLOBIN 10.6 gm/dL (14.0-18.0); LYMPHOCYTES 3.1 % (24.0-44.0); MCH 33.3 pg (26.0-34.0); MCV 97.9 fL (80.0-100.0); MONOCYTES 7.3 % (1.0-8.0); PLATELET COUNT 225 thou/uL (150-400); POLYS 88.3 % (36.0-66.0); RBC 3.17 mil/uL (4.50-6.00); RDW 13.6 % (10.5-14.5); WBC 11.6 thou/uL (4.0-11.0)
[2018-01-09 15:01] LABS: ANION GAP 8 mmol/L (7-16); BUN 15 mg/dL (7-18); CALCIUM 8.8 mg/dL (8.5-10.1); CHLORIDE 101 mmol/L (98-107); CO2 27 mmol/L (21-32); CREATININE 1.2 mg/dL (0.7-1.3); GLUCOSE 120 mg/dL (74-106); POTASSIUM 4.4 mmol/L (3.5-5.1); SODIUM 136 mmol/L (136-145)
[2018-01-09 15:09] LABS: TROPONIN-I <0.06 ng/mL (<0.06)
[2018-01-09 17:51] VITALS: BP 103/48
[2018-01-09 20:10] VITALS: BP 109/47
[2018-01-09 20:53] LABS: BE(vivo) 2.4 mmol/L (-2 to +3); HCO3 25.1 mmol/L (22.0-26.0); PCO2 32.6 mmHg (35.0-45.0); PO2 74.2 mmHg (80.0-100.0); pH 7.505 (7.360-7.450); sO2 96.2 % (92.0-98.0)
[2018-01-10 04:04] VITALS: BP 110/49
[2018-01-10 07:44] VITALS: BP 96/64
[2018-01-10 14:13] LABS: URINE BILIRUBIN NEGATIVE (Negative); URINE BLOOD NEGATIVE (Negative); URINE CLARITY CLEAR; URINE COLOR YELLOW; URINE GLUCOSE-RANDOM* NEGATIVE (Negative); URINE KETONES NEGATIVE (Negative); URINE LEUKOCYTES-REFLEX NEGATIVE (Negative); URINE NITRITE-REFLEX NEGATIVE (Negative); URINE PROTEIN (DIPSTICK) NEGATIVE (Negative); URINE SPECIFIC GRAVITY <= 1.005 (1.005-1.035)
[2018-01-10 16:39] VITALS: BP 100/59
[2018-01-10 19:37] VITALS: BP 103/52
[2018-01-11 04:12] VITALS: BP 106/56
[2018-01-11 05:26] LABS: HEMATOCRIT 29.2 % (42.0-52.0); HEMOGLOBIN 10.2 gm/dL (14.0-18.0); MCH 33.3 pg (26.0-34.0); MCHC 34.8 g/dL (28.0-37.0); MCV 95.7 fL (80.0-100.0); RBC 3.05 mil/uL (4.50-6.00); RDW 13.6 % (10.5-14.5); WBC 8.1 thou/uL (4.0-11.0)
[2018-01-11 05:46] LABS: ALBUMIN 2.5 g/dL (3.4-5.0); CALCIUM 8.8 mg/dL (8.5-10.1); CREATININE 1.2 mg/dL (0.7-1.3); POTASSIUM 3.6 mmol/L (3.5-5.1); TOTAL BILIRUBIN 0.8 mg/dL (<0.1-1.0); TOTAL PROTEIN 6.8 g/dL (6.4-8.2)
[2018-01-11 08:10] VITALS: BP 108/63
[2018-01-11 19:52] VITALS: BP 116/54
[2018-01-12 04:32] VITALS: BP 117/67
[2018-01-12 05:41] LABS: ABSOLUTE NEUTROPHILS 11.3 thou/uL (1.4-8.2); BASOPHILS 0.1 % (0.0-2.0); HEMATOCRIT 29.8 % (42.0-52.0); HEMOGLOBIN 10.1 gm/dL (14.0-18.0); MCV 97.2 fL (80.0-100.0); MONOCYTES 2.6 % (1.0-8.0); PLATELET COUNT 215 thou/uL (150-400); POLYS 94.3 % (36.0-66.0); RBC 3.07 mil/uL (4.50-6.00); RDW 13.8 % (10.5-14.5)
[2018-01-12 06:05] LABS: ALBUMIN 2.6 g/dL (3.4-5.0); CALCIUM 8.9 mg/dL (8.5-10.1); CREATININE 1.1 mg/dL (0.7-1.3); TOTAL BILIRUBIN 0.7 mg/dL (<0.1-1.0); TOTAL PROTEIN 6.9 g/dL (6.4-8.2)
[2018-01-12 08:20] VITALS: BP 107/54
[2018-01-12 10:31] VITALS: BP 123/75
[2018-01-12 11:00] VITALS: BP 120/70
[2018-01-12 13:14] LABS: ANA INTERPRETATION Negative (Negative)
[2018-01-12 19:40] VITALS: BP 121/53
[2018-01-13 04:15] VITALS: BP 118/60
[2018-01-13 06:27] LABS: ABSOLUTE NEUTROPHILS 9.5 thou/uL (1.4-8.2); BASOPHILS 0.1 % (0.0-2.0); HEMATOCRIT 28.4 % (42.0-52.0); HEMOGLOBIN 9.8 gm/dL (14.0-18.0); LYMPHOCYTES 4.7 % (24.0-44.0); MCH 33.6 pg (26.0-34.0); MCHC 34.5 g/dL (28.0-37.0); MCV 97.4 fL (80.0-100.0); MONOCYTES 4.9 % (1.0-8.0); PLATELET COUNT 213 thou/uL (150-400); POLYS 90.3 % (36.0-66.0); RBC 2.92 mil/uL (4.50-6.00); RDW 14.3 % (10.5-14.5); WBC 10.6 thou/uL (4.0-11.0)
[2018-01-13 06:46] LABS: CALCIUM 8.9 mg/dL (8.5-10.1); CREATININE 1.1 mg/dL (0.7-1.3); POTASSIUM 4.4 mmol/L (3.5-5.1)
[2018-01-13 07:27] VITALS: BP 118/65
[2018-01-13 15:44] VITALS: BP 122/55
[2018-01-13 20:14] VITALS: BP 122/59
[2018-01-14 07:05] VITALS: BP 111/61
[2018-01-14 07:26] LABS: ABSOLUTE NEUTROPHILS 8.6 thou/uL (1.4-8.2); BASOPHILS 0.1 % (0.0-2.0); HEMATOCRIT 28.5 % (42.0-52.0); HEMOGLOBIN 9.7 gm/dL (14.0-18.0); LYMPHOCYTES 4.2 % (24.0-44.0); MCH 33.2 pg (26.0-34.0); MCV 97.8 fL (80.0-100.0); MONOCYTES 4.5 % (1.0-8.0); PLATELET COUNT 198 thou/uL (150-400); POLYS 91.2 % (36.0-66.0); RBC 2.91 mil/uL (4.50-6.00); RDW 14.2 % (10.5-14.5); WBC 9.5 thou/uL (4.0-11.0)
[2018-01-14 07:40] LABS: CALCIUM 8.6 mg/dL (8.5-10.1); CREATININE 1.2 mg/dL (0.7-1.3); POTASSIUM 4.7 mmol/L (3.5-5.1)
[2018-01-14 19:29] VITALS: BP 110/59
[2018-01-15 07:05] VITALS: BP 103/52
[2018-01-15 20:23] VITALS: BP 134/74
[2018-01-16 07:01] LABS: HEMATOCRIT 31.3 % (42.0-52.0); HEMOGLOBIN 10.4 gm/dL (14.0-18.0); MCH 32.8 pg (26.0-34.0); MCHC 33.3 g/dL (28.0-37.0); MCV 98.3 fL (80.0-100.0); PLATELET COUNT 240 thou/uL (150-400); RBC 3.19 mil/uL (4.50-6.00); RDW 14.4 % (10.5-14.5); WBC 11.5 thou/uL (4.0-11.0)
[2018-01-16 07:03] LABS: CALCIUM 8.4 mg/dL (8.5-10.1); CREATININE 1.1 mg/dL (0.7-1.3); POTASSIUM 4.7 mmol/L (3.5-5.1)
[2018-01-16 07:10] VITALS: BP 125/65
[2018-01-16 09:00] LABS: ABSOLUTE NEUTROPHILS 10.4 thou/uL (1.4-8.2); METAMYELOCYTES 2 %; PLATELET ESTIMATE NORMAL
[2018-01-16 16:50] VITALS: BP 125/65
[2018-01-16 19:53] VITALS: BP 128/71
[2018-01-17 07:30] VITALS: BP 123/82
[2018-01-17] MEDS ORDERED: PREDNISONE 10 M10 M1 PO (10:53)
[2018-01-17] MEDS ORDERED: LEVAQUIN 500 M500 M1 PO (10:53)
== END 2018-01-17 15:25 | disposition home or self-care (01) | DRG 853 ==
LOC: ER 13:48 → 4E 16:40 → EROBS 16:40 → 4E 17:14 → SICU 01-13 17:56
PROVIDERS: Emergency Medicine; Hospitalist; Internal Medicine Pulmonary Disease
PROC: 5A09357 Assistance with Respiratory Ventilation, Less than 24 Consecutive Hours, Continuous Positive Airway Pressure (ICD-10-PCS; 2018-01-10)
PROC: 5A09357 Assistance with Respiratory Ventilation, Less than 24 Consecutive Hours, Continuous Positive Airway Pressure (ICD-10-PCS; 2018-01-11)
PROC: 0B9G8ZX Drainage of Left Upper Lung Lobe, Via Natural or Artificial Opening Endoscopic, Diagnostic (ICD-10-PCS; principal; 2018-01-12)
PROC: 0BD48ZX Extraction of Right Upper Lobe Bronchus, Via Natural or Artificial Opening Endoscopic, Diagnostic (ICD-10-PCS; principal; 2018-01-12)
PROC: 5A09357 Assistance with Respiratory Ventilation, Less than 24 Consecutive Hours, Continuous Positive Airway Pressure (ICD-10-PCS; 2018-01-14)
DX: A41.9 Sepsis, unspecified organism (principal); J15.6 Pneumonia due to other Gram-negative bacteria; J96.21 Acute and chronic respiratory failure with hypoxia; J44.1 Chronic obstructive pulmonary disease with (acute) exacerbation; I50.32 Chronic diastolic (congestive) heart failure; J44.0 Chronic obstructive pulmonary disease with (acute) lower respiratory infection; F32.9 Major depressive disorder, single episode, unspecified; I48.2 Chronic atrial fibrillation; I25.10 Atherosclerotic heart disease of native coronary artery without angina pectoris; I95.1 Orthostatic hypotension; I11.0 Hypertensive heart disease with heart failure; K21.9 Gastro-esophageal reflux disease without esophagitis; E78.5 Hyperlipidemia, unspecified; M19.90 Unspecified osteoarthritis, unspecified site; E78.00 Pure hypercholesterolemia, unspecified; G47.33 Obstructive sleep apnea (adult) (pediatric); D64.9 Anemia, unspecified; I49.5 Sick sinus syndrome; Z85.038 Personal history of other malignant neoplasm of large intestine; Z79.52 Long term (current) use of systemic steroids; Z85.46 Personal history of malignant neoplasm of prostate; Z99.81 Dependence on supplemental oxygen; Z87.891 Personal history of nicotine dependence; Z90.49 Acquired absence of other specified parts of digestive tract
CPT/HCPCS: 10783; 15002

== ENCOUNTER → 2018-03-02 | Outpatient (CLI) | payer OTHER ==
[~2018-03-02] VITALS: Ht 188 cm; Wt 107.5 kg
[~2018-03-02] MED LIST changes: +ESCITALOPRAM OX20 MG PO; +FLORINEF ACETA0.1 MG PO; +IPRATROPIUM BRO15 ML NASAL; +MIDODRINE HCL10 MG PO; +PREDNISONE 10 M10 M1 PO; +ROPINIROLE HCL2 M1 PO; +ZANAFLEX4 MG PO
[2018-03-02 15:33] LABS: ABSOLUTE NEUTROPHILS 10.9 thou/uL (1.4-8.2); BASOPHILS 0.3 % (0.0-2.0); EOSINOPHILS 0.1 % (0.0-3.0); HEMATOCRIT 33.3 % (42.0-52.0); LYMPHOCYTES 1.5 % (24.0-44.0); MCH 32.4 pg (26.0-34.0); MCV 98.2 fL (80.0-100.0); PLATELET COUNT 134 thou/uL (150-400); POLYS 97.1 % (36.0-66.0); RBC 3.39 mil/uL (4.50-6.00); WBC 11.2 thou/uL (4.0-11.0)
[2018-03-02 15:45] LABS: % SATURATION 10 % (20-39); IRON 31 ug/dL (65-175); TIBC 312 ug/dL (250-450)
[2018-03-02 15:48] LABS: ALBUMIN 3.1 g/dL (3.4-5.0); ANION GAP 11 mmol/L (7-16); BUN 25 mg/dL (7-18); CALCIUM 8.7 mg/dL (8.5-10.1); CHLORIDE 102 mmol/L (98-107); CHOLESTEROL 132 mg/dL (<200); CO2 25 mmol/L (21-32); CREATININE 1.2 mg/dL (0.7-1.3); GLUCOSE 204 mg/dL (74-106); HDL CHOLESTEROL 67 mg/dL (>40); LDL CHOLESTEROL 56 mg/dL (<100); MAGNESIUM 2.2 mg/dL (1.8-2.4); POTASSIUM 4.2 mmol/L (3.5-5.1); SERUM ASSESSMENT Clear; SGOT 14 U/L (15-37); SGPT 28 U/L (30-65); SODIUM 138 mmol/L (136-145); TOTAL BILIRUBIN 1.1 mg/dL (<0.1-1.0); TOTAL PROTEIN 6.4 g/dL (6.4-8.2); TRIGLYCERIDE 48 mg/dL (<150); VLDL 10 mg/dL (<40)
[2018-03-02 16:01] LABS: ANISOCYTOSIS 2+; PLATELET ESTIMATE NORMAL; POLYCHROMASIA SLIGHT
[2018-03-02 16:18] LABS: TSH 0.158 uIU/mL (0.358-3.740)
[2018-03-03 06:07] LABS: GLYCOHEMOGLOBIN (HGB A1C) 5.9 % (4.8-5.6)
[2018-03-03 16:34] LABS: URINE BILIRUBIN NEGATIVE (Negative); URINE BLOOD NEGATIVE (Negative); URINE CLARITY CLEAR; URINE COLOR YELLOW; URINE GLUCOSE-RANDOM* NEGATIVE (Negative); URINE KETONES NEGATIVE (Negative); URINE LEUKOCYTES-REFLEX NEGATIVE (Negative); URINE NITRITE-REFLEX NEGATIVE (Negative); URINE PROTEIN (DIPSTICK) NEGATIVE (Negative)
== END ==
LOC: SEN 02-23 08:46
PROVIDERS: Nurse Practitioner Family
DX: Z09 Encounter for follow-up examination after completed treatment for conditions other than malignant neoplasm (principal); I48.91 Unspecified atrial fibrillation; C61 Malignant neoplasm of prostate; G47.30 Sleep apnea, unspecified; J44.9 Chronic obstructive pulmonary disease, unspecified; Z79.899 Other long term (current) drug therapy

== ENCOUNTER → 2018-03-02 | Outpatient (CLI) | payer OTHER | LOC: RAD 15:27 | DX: J44.9 Chronic obstructive pulmonary disease, unspecified (principal); J90 Pleural effusion, not elsewhere classified ==

== ENCOUNTER 2018-05-03 09:03 | Inpatient (IN) | payer OTHER ==
[~2018-05-03] VITALS: Ht 185.4 cm; Wt 106.9 kg
--- NOTE | ~2018-05-03 | HC ---
[facility] [place] [address] [place] [address] CONSULTATION Name: LAYA EGAN Room #: 464-P [facility] IN M.R.#: [id number] Admission: 05/03/18 Attend Phys: Romeo Boykin Discharge: 05/06/18 Date of : 33 Report #: [id number] THIS REPORT FOR: //name// CC: Tuan Boykin DATE OF SERVICE: 05/04/2018 REFERRING PHYSICIAN: Dr. Boykin. REASON FOR REFERRAL: Dyspnea and hypoxia. HISTORY OF PRESENT ILLNESS: The patient is an 82-year-old white male who is known to the Pulmonary Service, presented to the Emergency Room with progressive dyspnea and hypotension. His chest x-ray showed previously noted infiltrates. Influenza A and B, nasal swab was positive. A pulmonary consultation was requested. The patient was recently hospitalized at [facility] this past February. During the hospitalization, the patient had a chest x-ray and chest CT showing increased interstitial infiltrates. CT chest did show bullous changes bilaterally with moderate increase in infiltrates. He was then placed on corticosteroids for presumed interstitial lung disease. Steroids were eventually discontinued recently. 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 He was in his usual state of health until the day of admission the patient felt lightheaded along with hypoxia with an O2 saturation 80%. For that reason, he presented to the Emergency Room. Symptoms started about 3 weeks prior to presentation. He was seen by Dr. Alva in one week in the office where prednisone was recently discontinued. Otherwise, he denies any recent febrile illness, chest pain, productive cough, hemoptysis, nausea, vomiting, diarrhea. PAST MEDICAL HISTORY: Notable for sleep apnea on BiPAP at nights, atrial fibrillation, hemorrhoids, anemia, colon cancer status post colectomy, depression, prostatic cancer, chronic hypoxic respiratory failure oxygen dependent, history of malaria, history of multiple pneumonias including Legionnaires', nephritis. ALLERGIES: None to medications. [facility] [address] [place] [address] CONSULTATION Name: LAYA EGAN WILFRED Room #: 464-P [facility] IN M.R.#: [id number] Admission: 05/03/18 Attend Phys: Romeo Boykin Discharge: 05/06/18 Date of : 33 Report #: [id number] HOME MEDICATIONS: Prednisone was recently discontinued. DuoNeb, midodrine, Colace, Florinef, omeprazole, Vytorin, Xarelto, Prozac, ProAir, Claritin, ropinirole 2 mg p.o. at bedtime. FAMILY HISTORY: Noncontributory. SOCIAL HISTORY: The patient has smoked in the past, but quit many years ago. He denies any alcohol use. He is . REVIEW OF SYSTEMS: As mentioned above, otherwise 10-point system review negative. PHYSICAL EXAMINATION: GENERAL: He is awake, alert, and appears mildly dyspneic. VITAL SIGNS: Temperature is 37 degrees Celsius, pulse is 80, respiratory rate is 18, blood pressure is 117/66 mmHg, saturation 97% on 5 liters of O2. HEENT: Unremarkable. NECK: Supple, no lymphadenopathy or thyromegaly. CHEST: Breath sounds are fair. Air movement is bilaterally, mild bilateral crackles. No obvious wheezes. CARDIOVASCULAR: Normal S1, S2. There are no murmurs or gallop. There is no JVD. There is no carotid bruit. Pulses are 2+/4+ bilaterally. ABDOMEN: Soft, nontender, no organomegaly or masses felt. GENITOURINARY: Deferred. RECTAL: Deferred. EXTREMITIES: There is no edema, cyanosis or clubbing. LABORATORY DATA: Portable chest x-ray shows bilateral infiltrates, greater in the left than the right with left-sided pleural effusion, infiltrates appears to be in the peripheral area of the lung. Influenza A and B, nasal swab was positive. Electrolytes are normal. Troponin is normal. Arterial blood gas revealed pH 7.46, pCO2 of 36, pO2 of 55 on 4 liters of O2. WBC 11,300, hemoglobin 10.0. IMPRESSION: 1. Influenza, presumed pneumonia. 2. Wazff-vs-ptopfrk hypoxic respiratory failure. 3. Persistent infiltrates, question interstitial lung disease. Prednisone was recently discontinued. This may explain the hypotension. 4. Hypotension, better, may be related to adrenal insufficiency. 5. Sleep apnea, on BiPAP at night. 6. Atrial fibrillation, paroxysmal. 7. Chronic obstructive pulmonary disease. 8. Chronic pleural thickening, left side, atrial fibrillation. 9. 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 [facility] [address] [place] [address] CONSULTATION Name: JULISALAYA Room #: 464-P DIS IN M.R.#: [id number] Admission: 05/03/18 Attend Phys: Romeo Boykin Discharge: 05/06/18 Date of : 33 Report #: [id number] RECOMMENDATION: Agree with current medical care including Tamiflu, steroids, bronchodilators. Recommend DVT and GI prophylaxis. Broad spectrum antibiotics would also be beneficial. In regards to his interstitial lung disease, chest x-ray still shows moderate bilateral infiltrates. I will recommend repeating ____ CT to further define whether the patient indeed has interstitial lung disease, honeycombing, pulmonary fibrosis, etc. Thank you for this consultation. <ELECTRONICALLY SIGNED> By: Darien North MD 05/06/18 1844 1639 0109 Darien North MD /nt
--- NOTE | ~2018-05-03 | EKG ---
[place] [address] [place] [address] ELECTROCARDIOGRAM REPORT Name: LAYA EGAN Room #: 464-P ADM IN M.R.#: [id number] Admission: 05/03/18 Attend Phys: Romeo Boykin Discharge: Date of : 33 Report #: [id number] THIS REPORT FOR: //name// [facility] ED Test Date: 2018-05-03 Test Time: 10:00:20 Pat Name: LAYA EGAN Department: Room: 464 Gender: M Resident Care Technician: [facility] : 1935 Requested By: Jayesh Patel Order Number: [id number] MD: Kaden Barajas Measurements Intervals [place] Rate: 93 P: UT: QRS: 29 QRSD: 97 T: -4 QT: 421 QTc: 524 Interpretive Statements Atrial fibrillation Borderline T abnormalities, inferior leads Prolonged QT interval Compared to ECG 02/08/2018 14:19:44 No significant change was found Electronically Signed On 05-04-2018 9:18:03 CDT by Kaden Barajas [email or web address] <ELECTRONICALLY SIGNED> By: Kaden Barajas MD, [facility] 05/04/1818 1000 [address] Kaden Barajas MD, FACC /EPI
[2018-05-03 09:13] VITALS: BP 91/47
[2018-05-03 10:25] LABS: BE(vivo) 2.2 mmol/L (-2 to +3); HCO3 25.9 mmol/L (22.0-26.0); PCO2 36.6 mmHg (35.0-45.0); PO2 55.2 mmHg (80.0-100.0); pH 7.467 (7.360-7.450); sO2 90.6 % (92.0-98.0)
[2018-05-03 10:29] LABS: ABSOLUTE NEUTROPHILS 9.3 thou/uL (1.4-8.2); BASOPHILS 0.6 % (0.0-2.0); EOSINOPHILS 2.5 % (0.0-3.0); HEMATOCRIT 29.6 % (42.0-52.0); LYMPHOCYTES 5.3 % (24.0-44.0); MCH 32.6 pg (26.0-34.0); MCHC 33.7 g/dL (28.0-37.0); MCV 96.8 fL (80.0-100.0); MONOCYTES 9.5 % (1.0-8.0); PLATELET COUNT 272 thou/uL (150-400); POLYS 82.1 % (36.0-66.0); RBC 3.05 mil/uL (4.50-6.00); RDW 16.6 % (10.5-14.5); WBC 11.3 thou/uL (4.0-11.0)
[2018-05-03 10:36] LABS: ANION GAP 6 mmol/L (7-16); BUN 11 mg/dL (7-18); CALCIUM 9.4 mg/dL (8.5-10.1); CHLORIDE 101 mmol/L (98-107); CO2 28 mmol/L (21-32); CREATININE 1.1 mg/dL (0.7-1.3); POTASSIUM 4.3 mmol/L (3.5-5.1); SODIUM 135 mmol/L (136-145)
[2018-05-03 10:45] LABS: TROPONIN-I <0.06 ng/mL (<0.06)
[2018-05-03 10:51] LABS: GLUCOSE 106 mg/dL (74-106)
[2018-05-03 16:56] VITALS: BP 91/47
[2018-05-03 17:30] VITALS: BP 129/67
[2018-05-03 18:01] VITALS: BP 111/53
[2018-05-04 00:20] VITALS: BP 108/69
[2018-05-04 04:09] VITALS: BP 117/66
[2018-05-04 07:13] VITALS: BP 115/63
[2018-05-04 15:40] VITALS: BP 101/59
[2018-05-04 19:52] VITALS: BP 101/55
[2018-05-05 05:09] VITALS: BP 106/50
[2018-05-05 07:12] LABS: TSH 0.418 uIU/mL (0.358-3.740)
[2018-05-05 08:21] VITALS: BP 121/66
[2018-05-05 15:58] VITALS: BP 117/60
[2018-05-05 20:10] VITALS: BP 117/61
[2018-05-06 01:07] LABS: ADENOVIRUS Negative (Negative); INFLUENZA A Negative (Negative); INFLUENZA B Negative (Negative); METAPNEUMOVIRUS Negative (Negative); PARAINFLUENZA 1 Negative (Negative); PARAINFLUENZA 2 Negative (Negative); PARAINFLUENZA 3 Negative (Negative); RHINOVIRUS Positive (Negative); RSV A Negative (Negative); RSV B Negative (Negative)
[2018-05-06 03:56] VITALS: BP 116/49
[2018-05-06 06:26] VITALS: BP 109/61
[2018-05-06] MEDS ORDERED: OSELB75 PO (10:43)
[2018-05-06] MEDS ORDERED: PREDNISONE 20 M20 M1 PO (10:44)
[2018-05-06 10:59] VITALS: BP 109/61
== END 2018-05-06 11:44 | disposition home or self-care (01) | DRG 871 ==
LOC: ER 09:03 → 4W 10:39 → EROBS 10:39 → 3W 17:36 → 4W 17:59 → ENTRNSPT 05-06 11:37 → 4W 05-06 11:44
PROVIDERS: Emergency Medicine; Hospitalist; Nurse Practitioner Family
PROC: 5A09357 Assistance with Respiratory Ventilation, Less than 24 Consecutive Hours, Continuous Positive Airway Pressure (ICD-10-PCS; principal; 2018-05-03)
PROC: 5A09357 Assistance with Respiratory Ventilation, Less than 24 Consecutive Hours, Continuous Positive Airway Pressure (ICD-10-PCS; 2018-05-04)
PROC: 5A09357 Assistance with Respiratory Ventilation, Less than 24 Consecutive Hours, Continuous Positive Airway Pressure (ICD-10-PCS; 2018-05-06)
DX: A41.9 Sepsis, unspecified organism (principal); J10.00 Influenza due to other identified influenza virus with unspecified type of pneumonia; J96.21 Acute and chronic respiratory failure with hypoxia; J44.0 Chronic obstructive pulmonary disease with (acute) lower respiratory infection; E27.40 Unspecified adrenocortical insufficiency; J84.9 Interstitial pulmonary disease, unspecified; G72.0 Drug-induced myopathy; E05.90 Thyrotoxicosis, unspecified without thyrotoxic crisis or storm; I95.9 Hypotension, unspecified; I48.2 Chronic atrial fibrillation; F32.9 Major depressive disorder, single episode, unspecified; J84.112 Idiopathic pulmonary fibrosis; K21.9 Gastro-esophageal reflux disease without esophagitis; B97.89 Other viral agents as the cause of diseases classified elsewhere; I48.0 Paroxysmal atrial fibrillation; T38.0X5A Adverse effect of glucocorticoids and synthetic analogues, initial encounter; J84.10 Pulmonary fibrosis, unspecified; G47.30 Sleep apnea, unspecified; Z87.01 Personal history of pneumonia (recurrent); Z99.81 Dependence on supplemental oxygen; Z90.49 Acquired absence of other specified parts of digestive tract; Z85.46 Personal history of malignant neoplasm of prostate; Z86.13 Personal history of malaria; Z79.899 Other long term (current) drug therapy; Z79.52 Long term (current) use of systemic steroids; Z91.19 Patient's noncompliance with other medical treatment and regimen; Z87.891 Personal history of nicotine dependence; Z79.01 Long term (current) use of anticoagulants; Z85.038 Personal history of other malignant neoplasm of large intestine; Y92.89 Other specified places as the place of occurrence of the external cause; Z23 Encounter for immunization
CPT/HCPCS: 10045

== ENCOUNTER 2018-12-08 02:32 | Emergency (ER) | payer OTHER ==
[~2018-12-08] VITALS: Ht 188 cm; Wt 104.3 kg
[~2018-12-08 02:32] MED LIST changes: +OSELB75 PO
[2018-12-08 02:58] LABS: ABSOLUTE NEUTROPHILS 5.2 thou/uL (1.4-8.2); BASOPHILS 0.8 % (0.0-2.0); EOSINOPHILS 1.7 % (0.0-3.0); HEMATOCRIT 37.4 % (42.0-52.0); HEMOGLOBIN 12.5 gm/dL (14.0-18.0); LYMPHOCYTES 18.4 % (24.0-44.0); MCH 34.1 pg (26.0-34.0); MCHC 33.3 g/dL (28.0-37.0); MCV 102.2 fL (80.0-100.0); MONOCYTES 8.2 % (1.0-8.0); PLATELET COUNT 136 thou/uL (150-400); POLYS 70.9 % (36.0-66.0); RBC 3.66 mil/uL (4.50-6.00); WBC 7.3 thou/uL (4.0-11.0)
[2018-12-08 03:07] LABS: ANION GAP 5 mmol/L (7-16); BUN 15 mg/dL (7-18); CALCIUM 8.7 mg/dL (8.5-10.1); CHLORIDE 106 mmol/L (98-107); CO2 30 mmol/L (21-32); CREATININE 1.3 mg/dL (0.7-1.3); GLUCOSE 125 mg/dL (74-106); POTASSIUM 4.1 mmol/L (3.5-5.1); SODIUM 141 mmol/L (136-145)
[2018-12-08 03:17] LABS: ALBUMIN 3.1 g/dL (3.4-5.0); MAGNESIUM 2.2 mg/dL (1.8-2.4); SGOT 16 U/L (15-37); SGPT 20 U/L (30-65); TOTAL BILIRUBIN 0.7 mg/dL (<0.1-1.0); TOTAL PROTEIN 6.5 g/dL (6.4-8.2); TROPONIN-I <0.06 ng/mL (<0.06)
[2018-12-08 06:03] LABS: CHOLESTEROL 137 mg/dL (<200); HDL CHOLESTEROL 51 mg/dL (>40); LDL CHOLESTEROL 76 mg/dL (<100); TC:HDL 2.7 Ratio (Not establshd); TRIGLYCERIDE 51 mg/dL (<150); VLDL 10 mg/dL (<40)
[2018-12-08 06:15] LABS: SERUM ASSESSMENT Clear
[2018-12-08 09:09] VITALS: BP 112/74
--- NOTE | 2018-12-08 09:18 | EKG ---
[address] [address] ELECTROCARDIOGRAM REPORT Name: LAYA EGAN Room #: 170-2 ADM IN M.R.#: [id number] ������������������ Admission: 12/08/18 ������������������ Attend Phys: Romeo Boykin Discharge: ������������������ Date of : 33 Report #: [id number] ����������������������������������������������������������������� [id number] THIS REPORT FOR: //name// [facility] ED Test Date: 2018-12-08 Test Time: 02:40:09 Pat Name: LAYA EGAN Department: Room: 170 Gender: M [employer] Man: : 1935 Requested By: Vel Romero Order Number: [id number] MD: Kaden Barajas Measurements Intervals [place] Rate: 51 P: 0 [place]: 55 QRS: -3 QRSD: 96 T: 14 QT: 469 QTc: 432 Interpretive Statements Atrial fibrillation Compared to ECG 05/03/2018 10:00:20 No significant change was found Electronically Signed On 12-08-2018 9:18:35 CDT by Kaden Barajas [email or web address] ��������������������������������������������� <ELECTRONICALLY SIGNED> ���������������������������������������� By: Kaden Barajas MD, [facility] ��������������������������������������������� 12/08/18 0918 0240 0240 Kaden Barajas MD, FACC /EPI
== END 2018-12-08 09:11 | disposition home or self-care (01) ==
LOC: ER 02:32 → EROBS 04:09 → ER 04:09
PROVIDERS: Emergency Medicine; Nurse Practitioner Acute Care
DX: I48.91 Unspecified atrial fibrillation (principal); D64.9 Anemia, unspecified; R07.89 Other chest pain; G47.30 Sleep apnea, unspecified; K64.9 Unspecified hemorrhoids; F32.9 Major depressive disorder, single episode, unspecified; Z85.46 Personal history of malignant neoplasm of prostate; Z87.01 Personal history of pneumonia (recurrent); Z88.8 Allergy status to other drugs, medicaments and biological substances; Z87.891 Personal history of nicotine dependence